=== PATIENT | female | born 1990 | race Caucasian/White ===

== ENCOUNTER 2016-11-26 18:46 | Emergency (ER) | payer SELFPAY ==
[~2016-11-26] VITALS: Ht 152.4 cm; Wt 49.4 kg
[2016-11-26 19:59] VITALS: BP 120/88
== END 2016-11-26 19:59 | disposition home or self-care (01) ==
LOC: ED 18:46
DX: M77.9 Enthesopathy, unspecified (principal); Z88.0 Allergy status to penicillin